=== PATIENT | male | born 1985 | race Caucasian/White ===

== ENCOUNTER 2023-02-01 00:06 | Emergency (ER) | payer SELFPAY ==
[~2023-02-01] VITALS: Ht 169.2 cm; Wt 81.8 kg
[2023-02-01 00:16] VITALS: BP 109/71
== END 2023-02-01 01:29 ==
LOC: ER 00:07
DX: M54.2 Cervicalgia (principal); J45.909 Unspecified asthma, uncomplicated; G89.29 Other chronic pain; F17.200 Nicotine dependence, unspecified, uncomplicated; Z72.89 Other problems related to lifestyle; F12.90 Cannabis use, unspecified, uncomplicated
CPT/HCPCS: 99283